=== PATIENT | male | born 1995 | race African-American/Black ===

== ENCOUNTER 2019-10-10 17:39 | Emergency (ER) | payer MEDICAID ==
[~2019-10-10] VITALS: Ht 172.7 cm; Wt 101.1 kg
[2019-10-10 17:43] VITALS: BP 137/71
--- NOTE | 2019-10-10 17:55 | NUR ---
PT AMBULATORY TO ROOM 2 W/ C/O L LOWER DENTAL PAIN AFTER PT ATE A CHICKEN WING AND BACK MOLAR CRACKED. PT RESTING ON HIREN. DAMEON.
--- NOTE | 2019-10-10 18:59 | NUR ---
DENTAL BLOCK PERFORMED. PT PROVIDED W/ DC PAPERWORK AND DENTAL REFFERAL SHEET. ALL QUESTIONS ANSWERED.
== END 2019-10-10 19:16 | disposition home or self-care (01) ==
LOC: ED 19:09
DX: K08.89 Other specified disorders of teeth and supporting structures (principal)
CPT/HCPCS: 64400; 99284

== ENCOUNTER 2019-10-11 19:10 | Emergency (ER) | payer MEDICAID ==
[~2019-10-11] VITALS: Ht 172.7 cm; Wt 99.7 kg
[2019-10-11 19:12] VITALS: BP 145/81
--- NOTE | 2019-10-11 20:15 | NUR ---
CALLED FOR ROOM, NO ANSWER
--- NOTE | 2019-10-11 20:38 | NUR ---
NO ANSWER WHEN CALLED FOR ROOM, NEXT PT ROOMED
--- NOTE | 2019-10-11 20:56 | NUR ---
NO ANSWER WHEN CALLED FOR ROOM, NEXT PT ROOMED
== END 2019-10-12 01:52 | disposition left against medical advice (07) ==
LOC: ED 20:56
DX: K08.89 Other specified disorders of teeth and supporting structures (principal)
CPT/HCPCS: 99281

== ENCOUNTER 2019-10-19 00:31 | Emergency (ER) | payer MEDICAID ==
[~2019-10-19] VITALS: Ht 172.7 cm; Wt 101.0 kg
[2019-10-19 00:34] VITALS: BP 125/73
[2019-10-19] MEDS ORDERED: LIDOCAINE-MPF 1%, 5ML ONE (01:08)
[2019-10-19] MEDS ORDERED: BUPIVACAINE 0.25% ONE (01:08)
== END 2019-10-19 01:46 | disposition home or self-care (01) ==
LOC: ED 00:47
DX: K08.89 Other specified disorders of teeth and supporting structures (principal)
CPT/HCPCS: 64400; 99284

== ENCOUNTER 2019-11-22 00:23 | Emergency (ER) | payer MEDICAID ==
[~2019-11-22] VITALS: Ht 172.7 cm; Wt 103.5 kg
[2019-11-22 00:27] VITALS: BP 104/65
--- NOTE | 2019-11-22 00:35 | NUR ---
PT REPORTS COMING INTO ED TONIGHT DUE TO LEFT SIDED JAW PAIN, BOTTOM LEFT TOOTH, PT REPORTS CRACKING THAT TOOTH APPROX. 2 MONTHS AGO. DENIES VISION CHANGES, STEPHENS OR DIZZINESS. PT APPEARS UNCOMFORTABLE BUT NAD. STATES HES BEEN TRYING TO GET INTO DENTIST BUT IS HAVING A HARD TIME GETTING IN. WCANTHONY. BARRETT BOWENS AT BS FOR EVAL AND POC.
[2019-11-22] MEDS ORDERED: LIDOCAINE-MPF 1%, 5ML ONE (00:40)
[2019-11-22] MEDS ORDERED: BUPIVACAINE 0.25% ONE ×2 (00:40→00:46)
[2019-11-22] MEDS ORDERED: LIDOCAINE-MPF 2% ,5ML ONE (00:46)
[2019-11-22] MEDS ORDERED: LIDOCAINE-MPF 1%, 5ML INFIL ONE (01:00)
[2019-11-22] MEDS ORDERED: BUPIVACAINE 0.25% INFIL ONE (01:00)
--- NOTE | 2019-11-22 01:24 | NUR ---
Patient/Caregiver given discharge instructions and they have confirmed that they understand the instructions. Patient ambulatory with steady gait.
== END 2019-11-22 01:25 | disposition home or self-care (01) ==
LOC: ED 01:09
DX: K02.9 Dental caries, unspecified (principal)
CPT/HCPCS: 64400; 99284

== ENCOUNTER 2019-11-29 05:25 | Emergency (ER) | payer SELFPAY ==
[~2019-11-29] VITALS: Ht 172.7 cm; Wt 102.6 kg
[2019-11-29] MEDS ORDERED: BUPIVACAINE 0.25% ONE (05:56)
[2019-11-29] MEDS ORDERED: BUPIVACAINE/PF-EPI 0.25% 1:200K SQ ONE (06:00)
[2019-11-29] MEDS ORDERED: LIDOCAINE 1%-EPI 1:100K, 20ML SQ ONE (06:00)
[2019-11-29 06:21] VITALS: BP 133/67
== END 2019-11-29 06:31 | disposition home or self-care (01) ==
LOC: ED 06:00
DX: K02.9 Dental caries, unspecified (principal); K08.89 Other specified disorders of teeth and supporting structures
CPT/HCPCS: 64400; 99284

== ENCOUNTER 2019-12-01 02:44 | Emergency (ER) | payer SELFPAY ==
[~2019-12-01] VITALS: Ht 172.7 cm; Wt 103.0 kg
[2019-12-01 02:46] VITALS: BP 119/72
--- NOTE | 2019-12-01 03:36 | NUR ---
BREAK RN: ERP AT BEDSIDE
[2019-12-01] MEDS ORDERED: HYDROcodone/APAP 5/325 TABLET ONE (03:39)
[2019-12-01] MEDS ORDERED: HYDROcodone/APAP 5/325 TABLET PO ONE (04:00)
== END 2019-12-01 03:59 ==
LOC: ED 03:53
DX: K02.9 Dental caries, unspecified (principal); K08.89 Other specified disorders of teeth and supporting structures
CPT/HCPCS: 99283